=== PATIENT | female | born 1985 | race Caucasian/White ===

== ENCOUNTER 2017-04-30 03:18 | Emergency (ER) | payer MEDICAID ==
[~2017-04-30] VITALS: Ht 147.3 cm; Wt 41.5 kg
[~2017-04-30 03:18] MED LIST: FERS PO; SULF1TAB31 PO
[2017-04-30 03:26] VITALS: Ht 147.3 cm; Wt 41.5 kg
[2017-04-30] MEDS ORDERED: SULF1TAB31 PO (04:13)
[2017-04-30] MEDS ORDERED: CEPH-443 PO (04:13)
[2017-04-30] MEDS ORDERED: IBUP400T22 PO (04:14)
--- NOTE | 2017-04-30 04:19 | ERD ---
ER Documentation Chief Complaint Date/Time DATE: 04/30/17 TIME: 04:14 Chief Complaint abscess right arm HPI Patient is a 32-year-old female who presents to the emergency department with concerns of an abscess to her right forearm. Patient states that this started 3 days ago. Patient denies any IV drug use. Patient does have a history of meth use however she states she did not inject herself recently. Patient reports chills however she denies any fevers. Patient denies any nausea, vomiting, chest pain, shortness of breath or LOC. Patient does not recall her last tetanus vaccination. ROS All systems reviewed and are negative except as per history of present illness. Medications Home Meds Active Scripts Ibuprofen* (Motrin*) 400 Mg Tab, 400 MG PO Q6, #30 TAB Prov:NATHAN CLARK PA-C 04/30/17 Cephalexin* (Keflex*) 500 Mg Capsule, 500 MG PO QID for 7 Days, CAP Prov:NATHAN CLARK PA-C 04/30/17 Sulfamethoxazole/Trimethoprim* (Bactrim Ds* Tablet) 1 Each Tablet, 1 TAB PO BID , #14 TAB Prov:NATHAN CLARK PA-C 04/30/17 Sulfamethoxazole-Trimethoprim (Bactrim DS Tablet) 800-160 Mg Tab, 1 TAB PO BID for 7 Days, TAB Prov:FLAVIO STUART MD 12/30/14 Ferrous Sulfate* (Ferrous Sulfate*) 300 Mg/5 Ml Soln, 300 MG PO TID for 30 Days , TAB Prov:FLAVIO STUART MD 12/30/14 Allergies Allergies: Coded Allergies: No Known Drug Allergy (Unverified Allergy, Unknown, 07/18/14) PMhx/Soc History of Surgery: Yes (2 c section) Anesthesia Reaction: No Hx Neurological Disorder: No Hx Respiratory Disorders: Yes (CHF) Hx Cardiac Disorders: Yes (hypotension) Hx Psychiatric Problems: No Hx Miscellaneous Medical Probl: No Hx Alcohol Use: No Hx Substance Use: Yes (smoke meth) Hx Tobacco Use: No Smoking Status: Never smoker Physical Exam Vitals Vital Signs Date Time Temp Pulse Resp B/P Pulse Ox O2 Delivery O2 Flow Rate FiO2 04/30/17 03:26 98.2 101 20 101/48 100 Physical Exam GENERAL: Well-developed, well-nourished female. Appears in no acute distress. HEAD: Normocephalic, atraumatic. EYES: Pupils are equally reactive bilaterally. EOMs grossly intact. No conjunctival erythema. ENT: Moist mucous membranes. No uvula deviation. No kissing tonsils. Poor dentition NECK: Supple. No meningismus. Normal range of motion of the neck. LUNG: Clear to auscultation bilaterally. No rhonchi, wheezing, rales or coarse breath sounds. HEART: Regular rate and rhythm. No murmurs, rubs or gallops. BACK: No midline tenderness. EXTREMITIES: Equal pulses bilaterally. No peripheral clubbing, cyanosis or edema. No unilateral leg swelling. NEUROLOGIC: Alert and oriented. Moving all four extremities without any difficulty. Normal speech. Steady gait. SKIN: Normal color. 3 cm circular, erythematous abscess with pinpoint opening noted on the patient's right forearm. No streaking. +Induration and fluctuance noted. No IV injection conti noted in bilateral arms. Results 24 hrs Current Medications Medications (Trade) Dose Ordered Sig/Vickey Route PRN Reason Start Time Stop Time Status Last Admin Dose Admin Lidocaine (Xylocaine 1% (Mdv) 20 ml) 20 ml ONCE ONCE SC 04/30/17 04:30 04/30/17 04:31 DC Diphtheria/ Tetanus/Acell Pertussis (Adacel) 0.5 ml ONCE ONCE IM* 04/30/17 04:30 04/30/17 04:31 DC 04/30/17 04:19 Trimethoprim/ Sulfamethoxazole (Bactrim (Ds)) 1 tab ONCE ONCE PO 04/30/17 05:00 04/30/17 05:01 DC 04/30/17 04:54 Cephalexin (Keflex) 500 mg ONCE ONCE PO 04/30/17 05:00 04/30/17 05:01 DC 04/30/17 04:54 Acetaminophen/ Hydrocodone Bitart (Napa (5/325)) 1 tab ONCE ONCE PO 04/30/17 05:00 04/30/17 05:01 DC 04/30/17 04:54 Procedures/MDM ED COURSE: The patient was stable throughout ED course. I kept the patient and/or family informed of laboratory and diagnostic imaging results throughout the ED course. INCISION AND DRAINAGE: The patient was verbally consented prior to procedure. Patient was explained the risks, benefits and alternatives to this procedure. Location: R forearm- volar surface Abscess size: 3 cm circular Anesthesia: local 1% lidocaine, 5 cc Preparation: The area was prepped in a sterile fashion using betadine x3 cleanses. A sterile field was prepared. Technique: A sterile 11 blade scalpel was used to make a 1 cm linear incision into the abscess. Procedure: A midline abscess incision was made using a sterile scalpel in a linear fashion. Purulent material was expressed with direct pressure. Blunt probing was used to break up loculations. Bleeding was minimal. Packing: half iodoform packing was placed into the wound. The patient tolerated the procedure well with no complications. The wound was dressed in sterile gauze. The patient was neurovascularly intact post- procedure. Post-procedural wound care was discussed with the patient. MEDICATIONS GIVEN: Tdap, Bactrim, Keflex, Nap[place] Patient tolerated medication well with no adverse reactions. MEDICAL DECISION MAKING: This is a 32-year-old female presents to the ED for concerns of abscess to her right forearm 3 days. Vital signs were reviewed. Incision and drainage was performed. Purulent discharge was expressed from the incision site. Post incision and drainage, patient was neurovascularly intact. Patient's tetanus vaccination was updated today.Low suspicion for deep space infection, necrotizing fasciitis, flexor tenosynovitis, tendon injury, nerve injury. PRESCRIPTIONS: Bactrim, Keflex DISCHARGE: At this time, the patient is stable for discharge and outpatient management. Patient advised to complete full course of antibiotics. Post-procedural wound care was discussed with the patient. The patient has been advised to return to the ER in 2 days for a wound check. I have instructed the patient to promptly return to the ER for any new or worsening symptoms including increasing pain, fever, warmth, redness or swelling. The patient and/or family expressed understanding of and agreement with this plan. All questions were answered. Home care instructions were provided. Disclaimer: Inadvertent spelling and grammatical errors are likely due to EHR/ dictation software use and do not reflect on the overall quality of patient care. Also, please note that the electronic time recorded on this note does not necessarily reflect the actual time of the patient encounter. Departure Diagnosis: Primary Impression: Abscess Condition: Stable Patient Instructions: Abscess, Incision And Drainage Referrals: [facility] YOU HAVE RECEIVED A MEDICAL SCREENING EXAM AND THE RESULTS INDICATE THAT YOU DO NOT HAVE A CONDITION THAT REQUIRES URGENT TREATMENT IN THE EMERGENCY DEPARTMENT. FURTHER EVALUATION AND TREATMENT OF YOUR CONDITION CAN WAIT UNTIL YOU ARE SEEN IN YOUR DOCTORS OFFICE WITHIN THE NEXT 1-2 DAYS. IT IS YOUR RESPONSIBILITY TO MAKE AN APPOINTMENT FOR FOLOW-UP CARE. IF YOU HAVE A PRIMARY DOCTOR --you should call your primary doctor and schedule an appointment IF YOU DO NOT HAVE A PRIMARY DOCTOR YOU CAN CALL OUR PHYSICIAN REFERRAL HOTLINE AT IF YOU CAN NOT AFFORD TO SEE A PHYSICIAN YOU CAN CHOSE FROM THE FOLLOWING [facility] [address] [facility] [address] [facility]. [facility] [address] [facility] [address] [facility] [address] [facility]. [facility] [address] [facility] YOU HAVE RECEIVED A MEDICAL SCREENING EXAM AND THE RESULTS INDICATE THAT YOU DO NOT HAVE A CONDITION THAT REQUIRES URGENT TREATMENT IN THE EMERGENCY DEPARTMENT. FURTHER EVALUATION AND TREATMENT OF YOUR CONDITION CAN WAIT UNTIL YOU ARE SEEN IN YOUR DOCTORS OFFICE WITHIN THE NEXT 1-2 DAYS. IT IS YOUR RESPONSIBILITY TO MAKE AN APPOINTMENT FOR FOLOW-UP CARE. IF YOU HAVE A PRIMARY DOCTOR --you should call your primary doctor and schedule and appointment IF YOU DO NOT HAVE A PRIMARY DOCTOR YOU CAN CALL OUR PHYSICIAN REFERRAL HOTLINE AT . IF YOU CAN NOT AFFORD TO SEE A PHYSICIAN YOU CAN CHOSE FROM THE FOLLOWING [facility] INSTITUTIONS: [facility] [address] [place] [address] [facility] [address] [place] [address] [facility] + [facility] [address] [place] [address] Additional Instructions: Return in 2 days for wound recheck. Start antibiotics today. Call your primary care doctor TOMORROW for an appointment during the next 1-2 days.See the doctor sooner or return here if your condition worsens before your appointment time. NATHAN CLARK PA-C Apr 30, 2017 04:19
[2017-04-30] MEDS ORDERED: DIPHTH/TET/ACEL PERTUSS (ADULT) 0.5 ML VIAL IM* ONE (04:30)
[2017-04-30] MEDS ORDERED: LIDOCAINE 1% (MDV) 20 ML INJ SC ONE (04:30)
[2017-04-30] MEDS ORDERED: TRIMETHOPRIM/SULFAMETHOX (DS) TAB PO ONE (05:00)
[2017-04-30] MEDS ORDERED: HYDROCODONE/APAP (5/325) TAB PO ONE (05:00)
[2017-04-30] MEDS ORDERED: CEPHALEXIN 500 MG CAP PO ONE (05:00)
== END 2017-04-30 05:04 | disposition home or self-care (01) ==
LOC: FTE 03:18
DX: L02.413 Cutaneous abscess of right upper limb (principal); I50.9 Heart failure, unspecified; Z23 Encounter for immunization
CPT/HCPCS: 10061; 90471; 90715; Z7502; Z7610

== ENCOUNTER 2017-05-19 18:46 | Emergency (ER) | payer OTHER ==
[~2017-05-19] VITALS: Ht 152.4 cm; Wt 39.5 kg
[~2017-05-19 18:46] MED LIST changes: +CEPH-443 PO; +IBUP400T22 PO
[2017-05-19 18:49] VITALS: Ht 152.4 cm; Wt 39.5 kg
== END 2017-05-19 20:41 | disposition left against medical advice (07) ==
LOC: E/R 18:46
DX: Z53.21 Procedure and treatment not carried out due to patient leaving prior to being seen by health care provider (principal)

== ENCOUNTER 2017-05-28 20:15 | Emergency (ER) | payer OTHER ==
[~2017-05-28] VITALS: Ht 134.6 cm; Wt 40.0 kg
[2017-05-28 20:23] VITALS: Ht 134.6 cm; Wt 40.0 kg
--- NOTE | 2017-05-28 21:43 | ERD ---
ER Documentation Chief Complaint Date/Time DATE: 05/28/17 TIME: 21:40 Chief Complaint c/o CP x2days. +SOB, +palpitations. abscess x2, hand and buttock HPI This is a 32-year-old female presents emergency department today complaining of some shortness of breath and heart palpitations. States she also has 2 abscesses on her body. States she has had these in the past. States that she finished her antibiotics last time. States she had a fever that started today. States abscesses started yesterday. ROS All systems reviewed and are negative except as per history of present illness. Medications Home Meds Active Scripts Clindamycin Hcl* (Clindamycin Hcl*) 300 Mg Capsule, 300 MG PO TID for 10 Days, CAP Prov:IVIS PHILLIPS PA-C 05/28/17 Acetaminophen* (Tylophen*) 500 Mg Capsule, 1 CAP PO Q6H Y for PAIN AND OR ELEVATED TEMP, #30 CAP Prov:IVIS PHILLIPS PA-C 05/28/17 Ibuprofen* (Motrin*) 800 Mg Tab, 800 MG PO Q6, #20 TAB Prov:IVIS PHILLIPS PA-C 05/28/17 Ibuprofen* (Motrin*) 400 Mg Tab, 400 MG PO Q6, #30 TAB Prov:NATHAN CLARK PA-C 04/30/17 Cephalexin* (Keflex*) 500 Mg Capsule, 500 MG PO QID for 7 Days, CAP Prov:NATHAN CLARK PA-C 04/30/17 Sulfamethoxazole/Trimethoprim* (Bactrim Ds* Tablet) 1 Each Tablet, 1 TAB PO BID , #14 TAB Prov:NATHAN CLARK PA-C 04/30/17 Sulfamethoxazole-Trimethoprim (Bactrim DS Tablet) 800-160 Mg Tab, 1 TAB PO BID for 7 Days, TAB Prov:FLAVIO STUART MD 12/30/14 Ferrous Sulfate* (Ferrous Sulfate*) 300 Mg/5 Ml Soln, 300 MG PO TID for 30 Days , TAB Prov:FLAVIO STUART MD 12/30/14 Allergies Allergies: Coded Allergies: No Known Drug Allergy (Unverified Allergy, Unknown, 05/28/17) PMhx/Soc History of Surgery: Yes (2 c section) Anesthesia Reaction: No Hx Neurological Disorder: No Hx Respiratory Disorders: Yes (CHF) Hx Cardiac Disorders: Yes (hypotension) Hx Psychiatric Problems: No Hx Miscellaneous Medical Probl: No Hx Alcohol Use: No Hx Substance Use: Yes (smoke meth) Hx Tobacco Use: No Smoking Status: Never smoker Physical Exam Vitals Vital Signs Date Time Temp Pulse Resp B/P Pulse Ox O2 Delivery O2 Flow Rate FiO2 05/28/17 23:20 98.8 114 16 94/58 100 Room Air 05/28/17 20:23 100.7 138 20 102/68 100 Physical Exam Const: talking NAD Head: Atraumatic Eyes: Normal Conjunctiva ENT: Normal External Ears, Nose and Mouth. Neck: Full range of motion..~ No meningismus. Resp: Clear to auscultation bilaterally Cardio: Regular rate and rhythm, no murmurs Abd: Soft, non tender, non distended. Normal bowel sounds Skin: 0.5 cm Abscess right forearm 4-5 cm abscess left buttock with erythema and fluctuance Back: No midline or flank tenderness Ext: No cyanosis, or edema Neur: Awake and alert Psych: Normal Mood and Affect Results 24 hrs Current Medications Medications (Trade) Dose Ordered Sig/Vickey Route PRN Reason Start Time Stop Time Status Last Admin Dose Admin Acetaminophen/ Hydrocodone Bitart 1 tab 1 tab ONCE ONCE PO 05/28/17 22:00 05/28/17 22:01 DC 05/28/17 21:41 Sodium Chloride (NS) 1,000 ml @ 1,000 mls/hr Q1H ONCE IV 05/28/17 22:00 05/28/17 22:59 DC 05/28/17 21:41 Lidocaine 20 ml 20 ml ONCE ONCE SC 05/28/17 22:00 05/28/17 22:01 DC Clindamycin HCl/ Dextrose (Cleocin 600 Mg/ D5W (Pmx)) 50 ml @ 50 mls/hr ONCE IVPB 05/28/17 22:00 05/28/17 22:59 DC 05/28/17 22:20 DIAGNOSTIC IMAGING REPORT Patient: FISH BEVERLY : 1985 Age: 32 Sex: F MR #: [id number] DOS: 05/28/17 0000 Ordering MD: IVIS PHILLIPS PA-C Location: [facility] Room/Bed: PROCEDURE: XR Chest. CLINICAL INDICATION: Shortness of breath TECHNIQUE: Single AP portable chest. COMPARISON: 12/27/2015 Chest x-ray FINDINGS: The cardiomediastinal silhouette is within normal limits of size. Atherosclerotic calcification of the aorta. The lungs are clear without pleural effusion or focal consolidation. No pneumothorax. The osseous structures and soft tissues are unremarkable. IMPRESSION: 1. No evidence for active cardiopulmonary disease. RPTAT:AAJJ Physician Alyssa Date Time Electronically viewed and signed by Physician Alyssa on 05/28/2017 22:53 EROS/ CC: IVIS PHILLIPS PA-C Procedures/MDM This a 32-year-old female who presents with shortness of breath, heart palpitations and an abscess. On physical exam patient has evidence of an abscess on her right forearm and left buttock. She was febrile at 100.7 here in the emergency department. She was also tachycardic. Her oxygen saturation is 100% however given her complaints of shortness of breath I did obtain a chest x-ray and EKG. Chest X-ray shows no evidence of cardiopulmonary disease. There is no focal consolidation, pneumothorax. Low suspicion for pneumonia, PE, abscess, pleural effusion. EKG read and interpreted by Dr. Lara. Rate [address] elevation. No QT prolongation. Sinus tachycardia. Patient for acute NH, PE, pericarditis Patient was given IV fluids, IV Clindamycin , [place] here in the emergency department. Part way through patient being given IV fluids she explained that she had a history of CHF. Fluids were stopped at that time however, her CHF may be related to her previous drug abuse. I explained to the patient that the abscesses needed to be drained. I explained the risks and benefits and patient agreed to proceed. The wound was cleaned in the usual sterile fashion. Patient tolerated the procedure well and there were no complications. Abscess Incision and Drainage with irrigation by me: Location: left buttock Anesthesia: [Local 1% Lidocaine] 5 cc Technique: [11 blade scalpel used to make a 1cm incision in the abscess. Irrigated. Disrupted loculations w/ instrumentation] Packing: iodoform Complications: [Neurovascularly intact post procedure] Exam and w/u not consistent w/ sepsis, deep space infection, or foreign body. Indicated that she did not want to have the abscess on her right forearm drained. It is very small. I have explained to her that she may continue to have pain there and worsening of abscess. I did attempt to unroof the area however carter declined the rest of the procedure and that she would just take antibiotics. 48 hour wound check. Scar minimization instructions given. Patient will be given a prescription for clindamycin, Motrin and Tylenol for home. At this time the patient is stable for discharge and outpatient management. Patient should follow up with their PCP in the next 1-2 days. They may return to the emergency department sooner for any persistent or worsening of symptoms. Patient understood and agreed with the plan. Discussed the patient with Dr. Negrete and she is in agreement with the plan Departure Diagnosis: Primary Impression: Abscess Additional Impression: Shortness of breath Condition: Fair IVIS PHILLIPS PA-C May 28, 2017 21:43
[2017-05-28] MEDS ORDERED: LIDOCAINE 1% (MDV) 20 ML INJ SC ONE (22:00)
[2017-05-28] MEDS ORDERED: SOD CHLORIDE 0.9% 1,000 ML IV ONE (22:00)
[2017-05-28] MEDS ORDERED: CLINDAMYCIN 600 MG/D5W (PMX) 50 ML IVPB SCH (22:00)
[2017-05-28] MEDS ORDERED: HYDROCODONE/APAP (5/325) TAB PO ONE (22:00)
--- NOTE | 2017-05-28 22:53 | RADRPT ---
PROCEDURE: XR Chest. CLINICAL INDICATION: Shortness of breath TECHNIQUE: Single AP portable chest. COMPARISON: 12/27/2015 Chest x-ray FINDINGS: The cardiomediastinal silhouette is within normal limits of size. Atherosclerotic calcification of t he aorta. The lungs are clear without pleural effusion or focal consolidation. No pneumothorax. The osseous structures and soft tissues are unremarkable. IMPRESSION: 1. No evidence for active cardiopulmonary disease. RPTAT:AAJJ Physician Alyssa Date Time Electronically viewed and signed by Physician Alyssa on 05/28/2017 22:53 EROS/
[2017-05-28] MEDS ORDERED: ACET500C5 PO (23:15)
[2017-05-28] MEDS ORDERED: IBUP800T25 PO (23:15)
[2017-05-28] MEDS ORDERED: CLIN-73 PO (23:16)
[2017-05-28 23:20] VITALS: BP 94/58; PULSE 114; RESP 16; TEMP 98.8
[2017-05-28] MEDS ORDERED: ONDANSETRON 4 MG INJ IV STA (23:56)
[2017-05-28] MEDS ORDERED: HYDROmorphONE 1 MG/ML SYG IV STA (23:56)
== END 2017-05-29 00:17 | disposition home or self-care (01) ==
LOC: FTE 20:15
DX: L02.31 Cutaneous abscess of buttock (principal); R06.02 Shortness of breath; I50.9 Heart failure, unspecified
CPT/HCPCS: 10060; 71010; 96374; 96375; J1170; J2405; J7030; Z7502; Z7610

== ENCOUNTER 2017-05-31 12:19 | Emergency (ER) | payer SELFPAY ==
[~2017-05-31 12:19] MED LIST changes: +ACET500C5 PO; +CLIN-73 PO; +IBUP800T25 PO
== END 2017-05-31 13:09 | disposition left against medical advice (07) ==
LOC: E/R 12:19
DX: Z53.21 Procedure and treatment not carried out due to patient leaving prior to being seen by health care provider (principal)

== ENCOUNTER 2019-03-23 03:11 | Emergency (ER) | payer OTHER ==
[~2019-03-23] VITALS: Ht 147.3 cm; Wt 43.6 kg
[~2019-03-23 03:11] MED LIST changes: -CLIN-73 PO; +CLIN300C10 PO; +IBUP-1561 PO; -IBUP400T22 PO; -IBUP800T25 PO; +IBUP800T48 PO
[2019-03-23 03:14] VITALS: Ht 147.3 cm; Wt 43.6 kg
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
[2019-03-23 05:56] VITALS: BP 98/56; PULSE 89; RESP 16
== END 2019-03-23 05:56 | disposition home or self-care (01) ==
LOC: E/R 03:11
DX: R07.89 Other chest pain (principal); D64.9 Anemia, unspecified; I11.0 Hypertensive heart disease with heart failure; I50.9 Heart failure, unspecified
CPT/HCPCS: 36415; 71045; 80048; 83880; 84484; 85025; 93005